=== PATIENT | female | born 1970 | race Caucasian/White ===

== ENCOUNTER 2016-06-07 23:55 | Emergency (ER) | payer OTHER ==
[~2016-06-07 23:55] MED LIST: ALPRAZOLAM PO; DOXYCYCLINE PO; HUMIBID DM1 CAP.SR . PO; LORTAB; LORTAB 5/500 TA1 TA1 PO; NO MEDICATIONS; PHENERGAN25 MG PO; VICODIN 5/500 T1 TAB PO
[2016-06-08 00:55] LABS: URINE SOURCE CLEAN CATCH
[2016-06-08 00:57] LABS: URINE APPEARANCE CLOUDY; URINE BILIRUBIN NEG (NEG); URINE BLOOD 3+ (NEG); URINE COLOR YELLOW; URINE GLUCOSE NEG (NORM); URINE KETONE NEG (NEG); URINE LEUKOCYTE ESTERASE 2+ (NEG); URINE NITRATE POS (NEG); URINE PH 5.5 (5-8); URINE PROTEIN 2+ (NEG); URINE SPECIFIC GRAVITY 1.025 (1.003-1.035); URINE UROBILINOGEN 0.2 MG/DL (NORM)
[2016-06-08 01:06] LABS: MICRO INDICATED? YES
[2016-06-08 01:08] LABS: URINE RBC INNUM /[HPF] (0-2); URINE WBC INNUM /[HPF] (0-5)
[2016-06-08 01:09] LABS: CULTURE INDICATED? YES; URINE BACTERIA 2+ (NEG); URINE MUCUS PRESENT; URINE SQUAMOUS EPITHELIAL CELL FEW /[HPF]
[2016-06-08] MEDS ORDERED: PYRIDIUM PO (01:43)
[2016-06-08] MEDS ORDERED: KEFLEX500 MG PO (01:43)
== END 2016-06-08 01:43 | disposition home or self-care (01) ==
LOC: SED 23:55
PROVIDERS: Emergency Medicine
DX: N30.00 Acute cystitis without hematuria (principal); F17.200 Nicotine dependence, unspecified, uncomplicated; Z87.442 Personal history of urinary calculi; Z90.49 Acquired absence of other specified parts of digestive tract; Z88.0 Allergy status to penicillin
CPT/HCPCS: 81003; 87086; 87088; 87186; 96372; 99284; J0696